=== PATIENT | male | born 1955 | race Hispanic/Latino ===

== ENCOUNTER 2017-10-03 13:00 | Inpatient (IN) | payer OTHER ==
[~2017-10-03] VITALS: Ht 165.1 cm; Wt 70.8 kg
[2017-10-03] MEDS ORDERED: PIPER-TAZ 3.375 GM 50 ML IV ONE (15:15)
[2017-10-03] MEDS ORDERED: VANCOMYCIN 1GM/NS 250 ML 250 ML IV ONE (15:15)
[2017-10-03 15:32] LABS: BASOPHILS # (AUTO) 0.1 (0.0-0.1); BASOPHILS % 0.6 % (0.0-1.0); EOSINOPHILS # (AUTO) 0.3 (0.0-0.4); EOSINOPHILS % 3.1 % (0.0-6.0); HEMATOCRIT 45.8 % (38.2-49.6); HEMOGLOBIN 15.7 g/dL (14.0-18.0); LYMPHOCYTES # (AUTO) 1.2 (1.0-3.2); MEAN CORPUSCULAR HEMOGLOBIN 29.1 pg (28-32); MEAN CORPUSCULAR HGB CONC 34.3 g/dL (31-35); MEAN CORPUSCULAR VOLUME 84.8 fL (81-99); MONOCYTES # (AUTO) 0.6 (0.2-0.8); MONOCYTES % 7.2 % (4.4-11.3); NEUTROPHILS # (AUTO) 5.9 (2.1-6.9); NEUTROPHILS % 73.6 % (38.7-80.0); PLATELET COUNT 191 x10e3/uL (140-360); RED CELL DISTRIBUTION WIDTH 13.4 % (11.7-14.4)
[2017-10-03 15:44] LABS: INR 0.97; PROTHROMBIN TIME 12.1 seconds (11.9-14.5)
[2017-10-03 15:45] LABS: PARTIAL THROMBOPLASTIN TIME 26.6 seconds (23.8-35.5)
[2017-10-03 15:48] LABS: ANION GAP 13.1 mmol/L (8-16); BLOOD UREA NITROGEN 16 mg/dL (7-26); BUN/CREATININE RATIO 17 (6-25); CALCIUM 9.7 mg/dL (8.4-10.2); CARBON DIOXIDE 24 mmol/L (22-29); CHLORIDE 105 mmol/L (98-107); CREATININE, SERUM 0.95 mg/dL (0.72-1.25); EST GLOMERULAR FILTRATION RATE > 60 ML/MIN (60-); GLUCOSE 142 mg/dL (74-118); POTASSIUM 4.1 mmol/L (3.5-5.1); SODIUM 138 mmol/L (136-145)
--- NOTE | 2017-10-03 15:55 | Diagnostic Imaging Report ---
PROCEDURE:X-RAY RIGHT FOOT, COMPLETE COMPARISON:None. INDICATIONS:NON HEALING WOUND ON LATERAL RIGHT FOOT FINDINGS: There are no fractures, dislocations, lytic or blastic lesions. No definite evidence of periosteal reaction or erosion. Mild deformity of the distal phalanx of the fifth toe, likely chronic. Soft tissue swelling of the lateral forefoot. Partially imaged old fracture deformity of distal fibula. CONCLUSION: No definite evidence of osteomyelitis. If there is high clinical concern, consider obtaining MRI for better evaluation. Dictated by: Roderick Hatfield M.D. on 10/03/2017 at 15:59 Electronically approved by: Roderick Hatfield M.D. on 10/03/2017 at 15:59
[2017-10-03] MEDS ORDERED: LOSARTAN POTASS25 MG PEG (16:07)
[2017-10-03] MEDS ORDERED: MONTELUKAST SOD10 MG PO (16:07)
[2017-10-03] MEDS ORDERED: GLIMEPIRIDE2 MG PEG (16:07)
[2017-10-03] MEDS ORDERED: LOVASTATIN40 MG PO (16:07)
[2017-10-03] MEDS ORDERED: GABAPENTIN400 MG PO (16:07)
[2017-10-03] MEDS ORDERED: CLOPIDOGREL75 MG PO (16:07)
[2017-10-03] MEDS ORDERED: SILVER GEL14.2 GM TOP (16:07)
[2017-10-03] MEDS ORDERED: ZYRTEC-D TABLE1 EACH PO (16:07)
[2017-10-03] MEDS ORDERED: OMEPRAZOLE40 MG PEG (16:07)
[2017-10-03] MEDS ORDERED: PIOGLITAZONE HC45 MG PO (16:07)
[2017-10-03] MEDS ORDERED: farxiga PEG (16:07)
[2017-10-03] MEDS ORDERED: CLINDAMYCIN HC150 MG PO (16:07)
[2017-10-03] MEDS ORDERED: CIPRO500 MG PO (16:07)
[2017-10-03] MEDS ORDERED: ATORVASTATIN CA20 MG PO (16:07)
[2017-10-03] MEDS ORDERED: SODIUM CHLORIDE FLUSH 10 ML SYR INJ PRN (16:45)
[2017-10-03 17:53] VITALS: BP 154/74
[2017-10-03 18:48] VITALS: BP 154/74
--- NOTE | 2017-10-03 19:34 | History and Physical ---
HISTORY OF PRESENT ILLNESS: Mr. Gibran Olivera is a pleasant 62-year-old diabetic. He presents to emergency room from referral from Dr. Schmitz's office for a necrotic lesion of the dorsum of his right foot. The patient reports that he does have numbness and tingling in both feet and both hands and did buy a new pair of shoes a couple months ago. He noticed this lesion 7 to 10 days [address] Schmitz who gave him oral antibiotics without any real improvement. PAST MEDICAL HISTORY: Significant only for diabetes and hypertension. Remote trauma in his right ankle about 30 years ago that was repaired without any foreign bodies. HOME MEDICATIONS: List is long including atorvastatin 20 mg daily, cetirizine, ciprofloxacin, clindamycin, clopidogrel 75 mg daily, gabapentin 400 mg b.i.d., glimepiride 2 mg tablet 4 mg b.i.d., losartan 25 mg tablets 50 mg daily, lovastatin 40 mg daily, montelukast, omeprazole 40 and Farxiga 10 mg. PERSONAL/SOCIAL HISTORY: Does not smoke. PHYSICAL EXAMINATION: GENERAL: Shows a pleasant, man who is alert and oriented. VITAL SIGNS: Blood pressure 130/70. HEENT: Unremarkable. NECK: No jugular venous distention. CARDIOVASCULAR: Heart sounds S1 S2 are equal. No murmurs. LUNGS: Clear. ABDOMEN: Protuberant. EXTREMITIES: No cyanosis, clubbing or edema. Distal pulses seem reduced and there is a circular necrotic lesion on the dorsum of the lateral right foot about 12 to 15 mm in diameter. CURRENT LABORATORY STUDIES: Show glucose 142. White count 8.0. X-ray of the foot does not suggest osteomyelitis. ASSESSMENT: 1. Necrotic lesion of the right foot, etiology not clear. 2. Long-standing diabetes. 3. Hyperlipidemia. 4. Possible peripheral vascular disease. PLAN: Patient has been switched to IV broad-spectrum antibiotics. Will continue his diabetic medications and ask for consultation from Dr. Salazar and Dr. Menendez. Check EKG and chest x-ray and further management based on clinical course. Job#: [id number] cc:GIBRAN SALAZAR DPM cc:DAIN MENENDEZ MD
[2017-10-03 20:00] VITALS: BP 160/78
[2017-10-03] MEDS ORDERED: SIMVASTATIN 40 MG TAB PO SCH (21:00)
[2017-10-03] MEDS ORDERED: SIMVASTATIN 20 MG TAB PO SCH (21:00)
[2017-10-03] MEDS: MONTELUKAST SODIUM 10 MG TAB PO SCH (21:04)
[2017-10-03] MEDS ORDERED: PIPER-TAZ 3.375 GM 50 ML IV SCH (21:40)
[2017-10-03] MEDS: PIPER-TAZ 3.375 GM 50 ML IV SCH (22:00)
--- NOTE | 2017-10-03 23:25 | Consultation ---
DATE OF CONSULTATION: October 03, 2017 PODIATRY CONSULTATION REASON FOR CONSULTATION: Chronic necrotic lesion, right foot. HISTORY OF PRESENT ILLNESS: Mr. Olivera is a pleasant 62-year-old male, admitted secondary to a lesion associated to his right foot. He has been for quite some time. Seen his primary care physician, Dr. Schmitz, for the worsening of the same. He was sent for evaluation and recommendations. He was admitted through ED for evaluation and recommendations. PAST MEDICAL HISTORY: Hypertension, diabetes, hyperlipidemia, GERD, PAD, peripheral neuropathy. SURGICAL HISTORY: Right ankle fracture, otherwise noncontributory. ALLERGIES: NO KNOWN DRUG ALLERGIES. MEDICATIONS: Please see MAR for current medication list. ELEVEN-POINT REVIEW OF SYSTEMS: Denies any nausea, vomiting, fever, chills, shortness of breath, chest pain, hematuria, constipation, diarrhea. PHYSICAL EXAM GENERAL: AO x3. NAD. HEENT: Normocephalic, atraumatic, anicteric. ABDOMEN: Soft, nontender, nondistended. RESPIRATORY: Symmetrical expansion. No distress. PSYCHIATRIC: Normal affect. EXTREMITIES: Patch of significant erythema nonblanchable erythema, which is significantly cool to touch with the center of ischemic area along the dorsal lateral aspect of the right foot. No soft tissue crepitus. No active drainage. Capillary refill time is delayed. DIAGNOSTIC DATA: X-rays negative. LABS: Within normal limits, particularly WBC. BUN and creatinine 16 and 0.95 respectively. Glucose is 142. ASSESSMENT: Ischemic lesion, right foot. PLAN: Recommend arterial studies and vascular workup and further recommendations to follow subsequent to the same, but it looks and sounds like he will need endovascular intervention. Ultimately, may benefit from more debridement. I would like to thank Dr. Felipe for allowing me to participate in the care of this patient. Job#: [id number] CQ
[2017-10-04] VITALS (7 sets, daily range): BP systolic 134–164; BP diastolic 63–84
[2017-10-04] MEDS ORDERED: SODIUM CHLORIDE 0.9% 250ML 250 ML ONE (00:22)
[2017-10-04] MEDS: VANCOMYCIN HCL 1.25 GM in SODIUM CHLORIDE 0.9% 250ML 250 ML IV SCH ×2 (03:11→15:30)
[2017-10-04] MEDS: PIPER-TAZ 3.375 GM 50 ML IV SCH ×4 (04:56→22:00)
--- NOTE | 2017-10-04 06:28 | Diagnostic Imaging Report ---
EXAMINATION: CHEST SINGLE (NOT PORTABLE) INDICATION: Diabetes, hypertension COMPARISON: None FINDINGS: TUBES and LINES: None. LUNGS: Lungs are well inflated. Lungs are clear. There is no evidence of pneumonia or pulmonary edema. PLEURA: No pleural effusion or pneumothorax. HEART AND MEDIASTINUM: The cardiomediastinal silhouette is unremarkable. BONES AND SOFT TISSUES: No acute osseous lesion. Soft tissues are unremarkable. UPPER ABDOMEN: No free air under the diaphragm. IMPRESSION: No acute thoracic abnormality. Signed by: Dr. Cullen Blanco M.D. on 10/04/2017 6:25 AM
[2017-10-04] MEDS ORDERED: GLIMEPIRIDE 2 MG TAB PEG SCH (07:30)
[2017-10-04 08:08] LABS: BASOPHILS # (AUTO) 0.1 (0.0-0.1); BASOPHILS % 0.7 % (0.0-1.0); EOSINOPHILS # (AUTO) 0.3 (0.0-0.4); EOSINOPHILS % 3.6 % (0.0-6.0); HEMATOCRIT 41.8 % (38.2-49.6); HEMOGLOBIN 14.4 g/dL (14.0-18.0); LYMPHOCYTES # (AUTO) 1.5 (1.0-3.2); LYMPHOCYTES % 20.6 % (18.0-39.1); MEAN CORPUSCULAR HGB CONC 34.4 g/dL (31-35); MEAN CORPUSCULAR VOLUME 84.3 fL (81-99); MONOCYTES # (AUTO) 0.5 (0.2-0.8); MONOCYTES % 7.3 % (4.4-11.3); NEUTROPHILS # (AUTO) 4.9 (2.1-6.9); NEUTROPHILS % 67.5 % (38.7-80.0); PLATELET COUNT 191 x10e3/uL (140-360); RED BLOOD COUNT 4.96 x10e6/uL (4.3-5.7); RED CELL DISTRIBUTION WIDTH 13.2 % (11.7-14.4)
[2017-10-04 08:23] LABS: ANION GAP 12.9 mmol/L (8-16); BLOOD UREA NITROGEN 18 mg/dL (7-26); BUN/CREATININE RATIO 21 (6-25); CALCIUM 9.2 mg/dL (8.4-10.2); CARBON DIOXIDE 23 mmol/L (22-29); CHLORIDE 109 mmol/L (98-107); CREATININE, SERUM 0.85 mg/dL (0.72-1.25); EST GLOMERULAR FILTRATION RATE > 60 ML/MIN (60-); GLUCOSE 158 mg/dL (74-118); POTASSIUM 3.9 mmol/L (3.5-5.1); SODIUM 141 mmol/L (136-145)
[2017-10-04] MEDS ORDERED: SIMVASTATIN 20 MG TAB PO SCH (09:00)
[2017-10-04] MEDS ORDERED: PANTOPRAZOLE SOD 40 MG TABEC PO SCH (09:00)
[2017-10-04] MEDS ORDERED: NON-FORMULARY MEDICATION (Cetirizine Hcl/Pseudoephedrine (Zyrtec-D Tablet) 1 TAB) PO SCH (09:00)
[2017-10-04] MEDS: FARXIGA 10 MG PEG SCH (09:00)
[2017-10-04] MEDS ORDERED: ATORVASTATIN 20 MG TAB PO SCH (09:00)
[2017-10-04] MEDS: PIOGLITAZONE HCL 45 MG TAB PO SCH (09:46)
[2017-10-04] MEDS: LORATADINE/PSEUDOEPHEDRINE 24 HR SR TAB PO SCH (09:46)
[2017-10-04] MEDS: LOSARTAN POTASSIUM 25 MG TAB PEG SCH (09:46)
[2017-10-04] MEDS: GABAPENTIN 400 MG CAP PO SCH ×2 (09:47→17:38)
[2017-10-04] MEDS: CLOPIDOGREL BISULFATE 75 MG TAB PO SCH (09:47)
[2017-10-04 15:36] LABS: FREE T4 (FREE THYROXINE) 0.94 ng/dL (0.9-1.8); THYROID STIMULATING HORMONE 1.761 uIU/mL (0.350-4.940)
[2017-10-04] MEDS: INSULIN LISPRO 100 UNIT/1 ML 3ML VIAL SQ SCH ×2 (16:45→21:00)
--- NOTE | 2017-10-04 17:39 | Consultation ---
DATE OF CONSULTATION: OCTOBER 04, 2017 ENDOCRINE CONSULTATION This is a patient of Dr. Felipe and Dr. Schmitz. Thank you very much for referring this patient. This is a 62-year-old gentleman who is referred to me for evaluation of diabetes mellitus. The patient reportedly is a known diabetic for almost 15 years and takes a combination of sulfonylurea that is glimepiride and pioglitazone. His blood sugars have been fluctuating at home. He came to the hospital with history of right foot ulcer. Patient is being evaluated for the same. Patient also has history of hypertension. He has a very strong family history of diabetes mellitus. PHYSICAL EXAMINATION GENERAL: Today, the patient is alert, awake, a little bit apprehensive. He is moderately overweight. VITALS: His heart rate is around 78. Blood pressure 140/80 mmHg. HEENT: Examination is essentially unremarkable. NECK: Thyroid is palpable. Clinically, he is near euthyroid CHEST: Bilateral vesicular breathing. Normal 1st and 2nd heart sounds. There is no 3rd or 4th heart sound. Ejection systolic murmur, grade 2/6. EXTREMITIES: Patient has evidence of diabetic sensory neuropathy in both lower extremities. He also has fungal toenails. He has an ulcer on the lateral aspect of the foot. It is relatively a superficial ulcer. LABS: His blood sugars have been in the 150 to 200 range. CLINICAL IMPRESSION 1. Foot ulcer, rule out ischemic ulcer. 2. Diabetes mellitus, type 2, uncontrolled with complications. 3. Hypertension. The plan at this time is to do a hemoglobin A1c and thyroid function test. Monitor his blood sugars closely. Use insulin as needed. The treatment options were discussed with the patient including SGLT2 inhibitor. Thanks for referring this patient. I will be following this patient with you. Job#: [id number] ANGEL
[2017-10-04] MEDS: MONTELUKAST SODIUM 10 MG TAB PO SCH (21:10)
[2017-10-04] MEDS: SIMVASTATIN 20 MG TAB PO SCH (21:10)
[2017-10-05] VITALS: BP 134/73
[2017-10-05 02:57] LABS: CHOL/HDL RATIO 5.1 (3.9-4.7)
[2017-10-05 04:00] VITALS: BP 137/67
[2017-10-05] MEDS: PIPER-TAZ 3.375 GM 50 ML IV SCH ×4 (04:52→22:10)
[2017-10-05] MEDS: INSULIN LISPRO 100 UNIT/1 ML 3ML VIAL SQ SCH ×4 (07:30→21:00)
[2017-10-05 08:28] VITALS: BP 155/81
[2017-10-05] MEDS: CLOPIDOGREL BISULFATE 75 MG TAB PO SCH (08:47)
[2017-10-05] MEDS: GABAPENTIN 400 MG CAP PO SCH ×2 (08:47→17:41)
[2017-10-05] MEDS: FARXIGA 10 MG PEG SCH (08:47)
[2017-10-05] MEDS: PIOGLITAZONE HCL 45 MG TAB PO SCH (08:47)
[2017-10-05] MEDS: LORATADINE/PSEUDOEPHEDRINE 24 HR SR TAB PO SCH (08:47)
[2017-10-05] MEDS: PANTOPRAZOLE SOD 40 MG TABEC PO SCH (08:47)
[2017-10-05] MEDS: LOSARTAN POTASSIUM 25 MG TAB PEG SCH (08:47)
[2017-10-05] MEDS: GLIMEPIRIDE 2 MG TAB PO SCH ×2 (08:47→17:41)
[2017-10-05] MEDS: VANCOMYCIN HCL 1.25 GM in SODIUM CHLORIDE 0.9% 250ML 250 ML IV SCH (10:17)
[2017-10-05 12:00] VITALS: BP 173/87
[2017-10-05 16:45] VITALS: BP 183/91
[2017-10-05 20:00] VITALS: BP 148/76
[2017-10-05] MEDS: SIMVASTATIN 20 MG TAB PO SCH (22:00)
[2017-10-05] MEDS: MONTELUKAST SODIUM 10 MG TAB PO SCH (22:00)
[2017-10-06] VITALS (7 sets, daily range): BP systolic 128–179; BP diastolic 71–84
[2017-10-06] MEDS: PIPER-TAZ 3.375 GM 50 ML IV SCH ×4 (04:23→21:18)
[2017-10-06 06:05] LABS: BASOPHILS # (AUTO) 0.1 (0.0-0.1); BASOPHILS % 0.6 % (0.0-1.0); EOSINOPHILS # (AUTO) 0.4 (0.0-0.4); EOSINOPHILS % 4.2 % (0.0-6.0); HEMATOCRIT 41.5 % (38.2-49.6); HEMOGLOBIN 14.4 g/dL (14.0-18.0); LYMPHOCYTES # (AUTO) 1.8 (1.0-3.2); LYMPHOCYTES % 21.3 % (18.0-39.1); MEAN CORPUSCULAR HEMOGLOBIN 29.1 pg (28-32); MEAN CORPUSCULAR HGB CONC 34.7 g/dL (31-35); MEAN CORPUSCULAR VOLUME 83.8 fL (81-99); MONOCYTES # (AUTO) 0.6 (0.2-0.8); MONOCYTES % 7.2 % (4.4-11.3); NEUTROPHILS # (AUTO) 5.5 (2.1-6.9); NEUTROPHILS % 66.5 % (38.7-80.0); PLATELET COUNT 208 x10e3/uL (140-360); RED BLOOD COUNT 4.95 x10e6/uL (4.3-5.7); RED CELL DISTRIBUTION WIDTH 13.1 % (11.7-14.4)
[2017-10-06 06:30] LABS: ANION GAP 10.6 mmol/L (8-16); BLOOD UREA NITROGEN 16 mg/dL (7-26); BUN/CREATININE RATIO 20 (6-25); CALCIUM 8.8 mg/dL (8.4-10.2); CARBON DIOXIDE 23 mmol/L (22-29); CHLORIDE 110 mmol/L (98-107); CREATININE, SERUM 0.79 mg/dL (0.72-1.25); EST GLOMERULAR FILTRATION RATE > 60 ML/MIN (60-); GLUCOSE 99 mg/dL (74-118); POTASSIUM 3.6 mmol/L (3.5-5.1); SODIUM 140 mmol/L (136-145)
[2017-10-06] MEDS: INSULIN LISPRO 100 UNIT/1 ML 3ML VIAL SQ SCH ×4 (07:30→21:00)
[2017-10-06] MEDS: FARXIGA 10 MG PEG SCH (09:00)
[2017-10-06] MEDS: LORATADINE/PSEUDOEPHEDRINE 24 HR SR TAB PO SCH (09:29)
[2017-10-06] MEDS: PIOGLITAZONE HCL 45 MG TAB PO SCH (09:29)
[2017-10-06] MEDS: PANTOPRAZOLE SOD 40 MG TABEC PO SCH (09:29)
[2017-10-06] MEDS: VANCOMYCIN HCL 1.25 GM in SODIUM CHLORIDE 0.9% 250ML 250 ML IV SCH (09:29)
[2017-10-06] MEDS: LOSARTAN POTASSIUM 25 MG TAB PEG SCH (09:29)
[2017-10-06] MEDS: CLOPIDOGREL BISULFATE 75 MG TAB PO SCH (09:29)
[2017-10-06] MEDS: GABAPENTIN 400 MG CAP PO SCH ×2 (09:29→17:04)
[2017-10-06] MEDS: GLIMEPIRIDE 2 MG TAB PO SCH ×2 (09:29→17:04)
[2017-10-06] MEDS: SIMVASTATIN 20 MG TAB PO SCH (21:00)
[2017-10-06] MEDS: MONTELUKAST SODIUM 10 MG TAB PO SCH (21:00)
[2017-10-07] VITALS (7 sets, daily range): BP systolic 133–166; BP diastolic 63–83
[2017-10-07] MEDS: PIPER-TAZ 3.375 GM 50 ML IV SCH ×4 (04:00→22:13)
[2017-10-07] MEDS: INSULIN LISPRO 100 UNIT/1 ML 3ML VIAL SQ SCH ×4 (07:30→21:00)
[2017-10-07] MEDS: GLIMEPIRIDE 2 MG TAB PO SCH ×2 (08:34→16:25)
[2017-10-07] MEDS: LORATADINE/PSEUDOEPHEDRINE 24 HR SR TAB PO SCH (08:34)
[2017-10-07] MEDS: PIOGLITAZONE HCL 45 MG TAB PO SCH (08:34)
[2017-10-07] MEDS: GABAPENTIN 400 MG CAP PO SCH ×2 (08:34→16:52)
[2017-10-07] MEDS: LOSARTAN POTASSIUM 25 MG TAB PEG SCH (08:34)
[2017-10-07] MEDS: PANTOPRAZOLE SOD 40 MG TABEC PO SCH (08:34)
[2017-10-07] MEDS: CLOPIDOGREL BISULFATE 75 MG TAB PO SCH (08:34)
[2017-10-07] MEDS: FARXIGA 10 MG PEG SCH (09:00)
[2017-10-07] MEDS: VANCOMYCIN HCL 1.25 GM in SODIUM CHLORIDE 0.9% 250ML 250 ML IV SCH (10:30)
[2017-10-07] MEDS: SIMVASTATIN 20 MG TAB PO SCH (22:13)
[2017-10-07] MEDS: MONTELUKAST SODIUM 10 MG TAB PO SCH (22:13)
[2017-10-08] VITALS (8 sets, daily range): BP systolic 139–158; BP diastolic 77–83
[2017-10-08] MEDS: PIPER-TAZ 3.375 GM 50 ML IV SCH ×4 (03:46→20:49)
[2017-10-08] MEDS: INSULIN LISPRO 100 UNIT/1 ML 3ML VIAL SQ SCH ×4 (07:30→21:00)
[2017-10-08] MEDS: FARXIGA 10 MG PEG SCH (09:00)
[2017-10-08] MEDS: GLIMEPIRIDE 2 MG TAB PO SCH ×2 (09:14→16:20)
[2017-10-08] MEDS: GABAPENTIN 400 MG CAP PO SCH ×2 (09:14→16:20)
[2017-10-08] MEDS: CLOPIDOGREL BISULFATE 75 MG TAB PO SCH (09:14)
[2017-10-08] MEDS: PIOGLITAZONE HCL 45 MG TAB PO SCH (09:14)
[2017-10-08] MEDS: LORATADINE/PSEUDOEPHEDRINE 24 HR SR TAB PO SCH (09:14)
[2017-10-08] MEDS: LOSARTAN POTASSIUM 25 MG TAB PEG SCH (09:14)
[2017-10-08] MEDS: PANTOPRAZOLE SOD 40 MG TABEC PO SCH (09:14)
[2017-10-08] MEDS: VANCOMYCIN HCL 1.25 GM in SODIUM CHLORIDE 0.9% 250ML 250 ML IV SCH (10:57)
[2017-10-08] MEDS: MONTELUKAST SODIUM 10 MG TAB PO SCH (20:49)
[2017-10-08] MEDS: SIMVASTATIN 20 MG TAB PO SCH (20:49)
[2017-10-09] VITALS (7 sets, daily range): BP systolic 136–146; BP diastolic 70–80
[2017-10-09] MEDS: PIPER-TAZ 3.375 GM 50 ML IV SCH ×2 (05:10→10:32)
[2017-10-09 05:47] LABS: BASOPHILS # (AUTO) 0.1 (0.0-0.1); BASOPHILS % 0.7 % (0.0-1.0); EOSINOPHILS # (AUTO) 0.4 (0.0-0.4); EOSINOPHILS % 4.4 % (0.0-6.0); HEMATOCRIT 42.5 % (38.2-49.6); HEMOGLOBIN 14.3 g/dL (14.0-18.0); LYMPHOCYTES # (AUTO) 1.7 (1.0-3.2); LYMPHOCYTES % 20.5 % (18.0-39.1); MEAN CORPUSCULAR HEMOGLOBIN 28.8 pg (28-32); MEAN CORPUSCULAR HGB CONC 33.6 g/dL (31-35); MEAN CORPUSCULAR VOLUME 85.7 fL (81-99); MONOCYTES # (AUTO) 0.7 (0.2-0.8); MONOCYTES % 8.3 % (4.4-11.3); NEUTROPHILS # (AUTO) 5.3 (2.1-6.9); NEUTROPHILS % 65.7 % (38.7-80.0); PLATELET COUNT 213 x10e3/uL (140-360); RED BLOOD COUNT 4.96 x10e6/uL (4.3-5.7); RED CELL DISTRIBUTION WIDTH 13.1 % (11.7-14.4)
[2017-10-09 06:16] LABS: ANION GAP 10.8 mmol/L (8-16); BLOOD UREA NITROGEN 19 mg/dL (7-26); BUN/CREATININE RATIO 24 (6-25); CARBON DIOXIDE 25 mmol/L (22-29); CHLORIDE 107 mmol/L (98-107); CREATININE, SERUM 0.78 mg/dL (0.72-1.25); EST GLOMERULAR FILTRATION RATE > 60 ML/MIN (60-); GLUCOSE 112 mg/dL (74-118); POTASSIUM 3.8 mmol/L (3.5-5.1); SODIUM 139 mmol/L (136-145)
[2017-10-09] MEDS: INSULIN LISPRO 100 UNIT/1 ML 3ML VIAL SQ SCH ×4 (07:30→20:14)
[2017-10-09] MEDS: CLOPIDOGREL BISULFATE 75 MG TAB PO SCH (08:56)
[2017-10-09] MEDS: GLIMEPIRIDE 2 MG TAB PO SCH ×2 (08:56→16:45)
[2017-10-09] MEDS: GABAPENTIN 400 MG CAP PO SCH ×2 (08:56→16:45)
[2017-10-09] MEDS: LOSARTAN POTASSIUM 25 MG TAB PEG SCH (08:56)
[2017-10-09] MEDS: PIOGLITAZONE HCL 45 MG TAB PO SCH (08:56)
[2017-10-09] MEDS: PANTOPRAZOLE SOD 40 MG TABEC PO SCH (08:56)
[2017-10-09] MEDS: LORATADINE/PSEUDOEPHEDRINE 24 HR SR TAB PO SCH (08:56)
[2017-10-09] MEDS: FARXIGA 10 MG PEG SCH (09:00)
[2017-10-09] MEDS: VANCOMYCIN HCL 1.25 GM in SODIUM CHLORIDE 0.9% 250ML 250 ML IV SCH (11:55)
[2017-10-09] MEDS ORDERED: ACETAMINOPHEN/CODEINE 300MG - 30MG TAB PO PRN (13:45)
[2017-10-09] MEDS ORDERED: DIPHENHYDRAMINE HCL 25 MG CAP PO PRN (13:45)
--- NOTE | 2017-10-09 14:39 | Operative Report ---
DATE OF PROCEDURE: October 09, 2017 PREOPERATIVE DIAGNOSIS: Diabetic ulceration albeit necrotic diabetic ulceration right foot. POSTOPERATIVE DIAGNOSIS: Diabetic ulceration albeit necrotic diabetic ulceration right foot. OPERATION PERFORMED: Sharp excisional debridement through subcutaneous tissue, muscle and deep fascia of diabetic ulceration dorsolateral aspect right foot. INVESTIGATION MANAGER: None. ANESTHESIA: None. HEMOSTASIS: Local. INDICATION FOR PROCEDURE: Mr. Olivera is a pleasant 62-year-old male who was admitted for what appeared to be initially an ischemic type of lesion to the right foot, particularly secondary to significant amount of mottling and cool cyanotic tissue to the periphery of the same with the center being significantly necrotic, in fact 100% necrotic. Over time with antibiotics, periphery has improved. The skin temperature surrounding the lesion is warm although the lesion itself is 100% escharotic and at this point needs debridement. He was educated on risks and complications and is willing and able to proceed. DETAILS OF PROCEDURE: This was done at bedside utilizing a number 10 blade, and the ulceration which is on the dorsolateral aspect of the right foot was sharply excised and sharply debrided utilizing once again a number 10 blade through subcutaneous tissue, deep fascia and some muscle. Some bleeding was established, hemostasis achieved, and dressings were applied. Patient tolerated the procedure well. At this point, getting ready for discharge planning. Local wound care should consist of Santyl wet-to-dry and discontinue IV antibiotics and start orals, at this point recommend doxycycline. Job#: [id number] VINNIE
[2017-10-09] MEDS: COLLAGENASE 5 GM TUBE TOP SCH (16:30)
[2017-10-09] MEDS: MONTELUKAST SODIUM 10 MG TAB PO SCH (20:18)
[2017-10-09] MEDS: DOXYCYCLINE HYCLATE TABLET 100 MG TAB PO SCH (20:19)
[2017-10-09] MEDS: SIMVASTATIN 20 MG TAB PO SCH (20:19)
[2017-10-10] VITALS: BP 141/74
[2017-10-10 04:00] VITALS: BP 134/77
[2017-10-10] MEDS: INSULIN LISPRO 100 UNIT/1 ML 3ML VIAL SQ SCH ×2 (07:30→11:30)
[2017-10-10] MEDS: GLIMEPIRIDE 2 MG TAB PO SCH (07:46)
[2017-10-10] MEDS: PANTOPRAZOLE SOD 40 MG TABEC PO SCH (07:46)
[2017-10-10 08:00] VITALS: BP 139/75
[2017-10-10] MEDS: PIOGLITAZONE HCL 45 MG TAB PO SCH (08:44)
[2017-10-10] MEDS: LOSARTAN POTASSIUM 25 MG TAB PEG SCH (08:44)
[2017-10-10] MEDS: CLOPIDOGREL BISULFATE 75 MG TAB PO SCH (08:44)
[2017-10-10] MEDS: GABAPENTIN 400 MG CAP PO SCH (08:44)
[2017-10-10] MEDS: COLLAGENASE 5 GM TUBE TOP SCH (08:44)
[2017-10-10] MEDS: DOXYCYCLINE HYCLATE TABLET 100 MG TAB PO SCH (08:44)
[2017-10-10] MEDS: LORATADINE/PSEUDOEPHEDRINE 24 HR SR TAB PO SCH (08:44)
[2017-10-10] MEDS ORDERED: COLLAGENASE 5 GM TUBE TOP SCH (09:00)
[2017-10-10] MEDS: FARXIGA 10 MG PEG SCH (09:00)
[2017-10-10 10:08] VITALS: BP 139/75
[2017-10-10 12:00] VITALS: BP 159/83
[2017-10-10] MEDS ORDERED: TYLENOL WITH C1 EACH PO (14:34)
[2017-10-10] MEDS ORDERED: ACTOS45 MG PO (14:35)
[2017-10-10] MEDS ORDERED: DOXYCYCLINE HY100 M4 PO (14:35)
[2017-10-10] MEDS ORDERED: AMARYL4 MG PO (14:36)
[2017-10-10 16:00] VITALS: BP 150/82
== END 2017-10-10 16:38 | disposition home or self-care (01) | DRG 982 ==
LOC: ER 13:00 → ERHOLD 16:46 → IMCU 17:54 → MED/SURG3 10-06 12:27 → OBSVTOIN 10-06 12:50
PROVIDERS: ADMIT Internal Medicine Cardiovascular Disease; ATTEND Internal Medicine Cardiovascular Disease
PROC: 0KBV0ZZ Excision of Right Foot Muscle, Open Approach (ICD-10-PCS; principal; 2017-10-09)
DX: E11.621 Type 2 diabetes mellitus with foot ulcer (principal); L03.115 Cellulitis of right lower limb; I96 Gangrene, not elsewhere classified; L97.519 Non-pressure chronic ulcer of other part of right foot with unspecified severity; E11.65 Type 2 diabetes mellitus with hyperglycemia; I10 Essential (primary) hypertension; E78.5 Hyperlipidemia, unspecified; K21.9 Gastro-esophageal reflux disease without esophagitis; E11.42 Type 2 diabetes mellitus with diabetic polyneuropathy; Z79.84 Long term (current) use of oral hypoglycemic drugs; Z79.02 Long term (current) use of antithrombotics/antiplatelets
CPT/HCPCS: 36415; 71045; 80048; 80061; 80202; 82948; 83036; 84439; 84443; 85025; 85610; 85730; 93005; 93925; 99284; G0378; J2543; J3370; J7050

== ENCOUNTER 2019-02-11 15:44 | Inpatient (IN) | payer OTHER ==
[~2019-02-11] VITALS: Ht 165.1 cm; Wt 89.8 kg
[~2019-02-11 15:44] MED LIST: ACTOS45 MG PO; AMARYL4 MG PO; ATORVASTATIN CA20 MG PO; CIPRO500 MG PO; CLINDAMYCIN HC150 MG PO; CLOPIDOGREL75 MG PO; DOXYCYCLINE HY100 M4 PO; GABAPENTIN400 MG PO; GLIMEPIRIDE2 MG PO; LOSARTAN POTASS25 MG PO; LOVASTATIN40 MG PO; MONTELUKAST SOD10 MG PO; OMEPRAZOLE40 MG PEG; PIOGLITAZONE HC45 MG PO; SILVER GEL14.2 GM TOP; TYLENOL WITH C1 EACH PO; ZYRTEC-D TABLE1 EACH PO; farxiga PEG
--- NOTE | 2019-02-11 16:01 | NUR ---
PT PLACED ON O2 UPON TRIAGE.
[2019-02-11 16:36] LABS: BASOPHILS % 0.6 % (0.0-1.0); EOSINOPHILS # (AUTO) 0.1 (0.0-0.4); EOSINOPHILS % 1.9 % (0.0-6.0); HEMATOCRIT 36.6 % (38.2-49.6); HEMOGLOBIN 12.1 g/dL (14.0-18.0); LYMPHOCYTES # (AUTO) 1.2 (1.0-3.2); LYMPHOCYTES % 24.7 % (18.0-39.1); MEAN CORPUSCULAR HEMOGLOBIN 29.6 pg (28-32); MEAN CORPUSCULAR HGB CONC 33.1 g/dL (31-35); MEAN CORPUSCULAR VOLUME 89.5 fL (81-99); MONOCYTES # (AUTO) 0.6 (0.2-0.8); MONOCYTES % 12.1 % (4.4-11.3); NEUTROPHILS # (AUTO) 2.8 (2.1-6.9); NEUTROPHILS % 60.5 % (38.7-80.0); PLATELET COUNT 203 x10e3/uL (140-360); RED BLOOD COUNT 4.09 x10e6/uL (4.3-5.7); RED CELL DISTRIBUTION WIDTH 14.5 % (11.7-14.4)
[2019-02-11 16:47] LABS: INR 0.94; PROTHROMBIN TIME 13.1 seconds (11.9-14.5)
[2019-02-11 16:48] LABS: PARTIAL THROMBOPLASTIN TIME 31.3 seconds (23.8-35.5)
[2019-02-11 16:53] LABS: ALANINE AMINOTRANSFERASE 44 IU/L (0-55); ALBUMIN 3.6 g/dL (3.5-5.0); ALBUMIN/GLOBULIN RATIO 1.3 (0.8-2.0); ALKALINE PHOSPHATASE 71 IU/L (40-150); ANION GAP 10.6 mmol/L (8-16); BLOOD UREA NITROGEN 12 mg/dL (7-26); BUN/CREATININE RATIO 13 (6-25); CALCIUM 9.1 mg/dL (8.4-10.2); CARBON DIOXIDE 26 mmol/L (22-29); CHLORIDE 105 mmol/L (98-107); CREATINE KINASE 137 IU/L (30-200); CREATININE, SERUM 0.95 mg/dL (0.72-1.25); EST GLOMERULAR FILTRATION RATE > 60 ML/MIN (60-); GLUCOSE 160 mg/dL (74-118); POTASSIUM 3.6 mmol/L (3.5-5.1); SODIUM 138 mmol/L (136-145)
--- NOTE | 2019-02-11 17:52 | Diagnostic Imaging Report ---
EXAMINATION: CHEST SINGLE (PORTABLE) COMPARISON: Chest x-ray 10/04/2017 INDICATION: Midsternal chest pain ^CHEST PAIN ^[id number] ^1735 ^Y DISCUSSION: Frontal view of the chest obtained at 1740 hours. HEART AND MEDIASTINUM: The heart is top normal in size to mildly enlarged. LINES: None. LUNGS: Pulmonary vascular markings are mildly prominent. There are patchy bilateral mid and lower lobe airspace opacities and mild interstitial edema. PLEURA: No large effusions. No pneumothorax. BONES AND SOFT TISSUES: No focal osseous lesion. The soft tissues are normal. IMPRESSION: Cardiomegaly and mild CHF. Pulmonary vascular congestion and bilateral mid and lower lobe airspace opacities which may represent edema or pneumonia. Signed by: Dr. Joselyn Jakcson MD on 02/11/2019 5:48 PM
[2019-02-11] MEDS ORDERED: FUROSEMIDE INJ 10 MG/ML 4 ML VIAL IV ONE (18:00)
[2019-02-11 19:13] LABS: BILIRUBIN,URINE NEGATIVE (NEGATIVE); CLARITY,URINE SL CLOUDY (CLEAR); COLOR,URINE YELLOW (YELLOW); KETONES,URINE NEGATIVE (NEGATIVE); LEUKOCYTE ESTERASE ,URINE NEGATIVE (NEGATIVE); NITRITE,URINE NEGATIVE (NEGATIVE); PROTEIN,URINE DIPSTICK NEGATIVE (NEGATIVE); URINE UROBILINOGEN 0.2 mg/dL (0.2 - 1)
[2019-02-11 19:26] LABS: MUCUS,URINE FEW (RARE)
--- NOTE | 2019-02-12 | NUR ---
pt transferred to hospital bed for comfort.
[2019-02-12 00:02] LABS: CREATINE KINASE MB 2.2 ng/mL (0-5.0)
[2019-02-12 04:56] LABS: CREATINE KINASE MB 1.7 ng/mL (0-5.0)
--- NOTE | 2019-02-12 06:20 | NUR ---
pt weight assessed using standing scale. weight 178.8lbs.
--- NOTE | 2019-02-12 10:05 | NUR ---
notified echo of order per
[2019-02-12] MEDS ORDERED: ACETAMINOPHEN 325 MG TAB PO PRN (10:15)
[2019-02-12] MEDS ORDERED: ZOLPIDEM TARTRATE 5 MG TAB PO PRN (10:15)
[2019-02-12] MEDS ORDERED: MAGNESIUM/ALUMINUM/SIMETHICONE 30 ML UDC PO PRN (10:15)
[2019-02-12] MEDS ORDERED: MAGNESIUM HYDROXIDE 30 ML UDC PO PRN (10:15)
[2019-02-12] MEDS ORDERED: DEXTROSE 50% SYRINGE 50 ML IV PRN (10:30)
--- NOTE | 2019-02-12 10:48 | NUR ---
madyson saw pt and pt/fm updated.
--- NOTE | 2019-02-12 11:41 | NUR ---
just completed echo. rad transportation here for pt to go to nuc. med.; consent placed on chart, (not signed)for nuc tech. pt sent on portable monitor per request of tech.
[2019-02-12] MEDS ORDERED: GABAPENTIN 300 MG CAP ONE (11:51)
--- NOTE | 2019-02-12 11:51 | NUR ---
meds pulled; pt already taken to radiology test stress test.
[2019-02-12] MEDS: PIOGLITAZONE HCL 45 MG TAB PO SCH (11:52)
[2019-02-12] MEDS: INSULIN REGULAR, HUMAN 100 UNIT/1 ML 3ML VIAL SQ SCH ×3 (11:52→21:00)
[2019-02-12] MEDS ORDERED: GABAPENTIN 100 MG CAP ONE (11:52)
[2019-02-12] MEDS: LOSARTAN POTASSIUM 25 MG TAB PO SCH ×2 (11:53→14:27)
[2019-02-12] MEDS: DOCUSATE SODIUM 100 MG CAP PO SCH ×2 (11:53→14:26)
[2019-02-12] MEDS: GABAPENTIN 400 MG CAP PO SCH ×2 (11:53→14:26)
[2019-02-12] MEDS: CLOPIDOGREL BISULFATE 75 MG TAB PO SCH ×2 (11:53→14:27)
[2019-02-12] MEDS: FUROSEMIDE 20 MG TAB PO SCH ×2 (11:54→14:27)
[2019-02-12] MEDS: PANTOPRAZOLE SOD 40 MG TABEC PO SCH ×2 (11:54→14:27)
[2019-02-12] MEDS ORDERED: REGADENOSON 0.4 MG/5 ML SYR IV ONE (12:02)
--- NOTE | 2019-02-12 12:05 | NUR ---
REPORT CALLED TO DAISY. KRUSE PT IN NUCLEAR MED. PT WILL COME BACK TO UNIT TO BE MEDICATED AND THEN TO FLOOR.
--- NOTE | 2019-02-12 14:05 | NUR ---
CALLED [facility] TO CHECK ON PT STATUS, FAY STATES PT STILL HAS 15 MINS LEFT ON TESTING.
--- NOTE | 2019-02-12 15:25 | NUR ---
RECEIVED PT FROM ER. VICTOR HUGO4. FAMILY AT BEDSIDE. EDUCATED PT ABOUT FALL PRECAUTIONS. CALL LIGHT WITH IN EASY REACH. INSTRUCTED PT TO USE CALL LIGHT FOR ALL THE NEEDS. BED IS LOW AND LOCKED. SIDE RAILS X 2. PT VERBALIZED UNDERSTANDING. PT DENIED FURTHER NEEDS.
[2019-02-12 15:46] VITALS: BP 147/92
[2019-02-12 16:27] VITALS: BP 147/92
[2019-02-12] MEDS: GLIMEPIRIDE 2 MG TAB PO SCH (17:26)
--- NOTE | 2019-02-12 17:53 | History and Physical ---
Mr. Olivera is a pleasant 63-year-old diabetic, who presents to the emergency room on the evening of the with a complaint of increasing shortness of breath. HISTORY OF PRESENT ILLNESS: The patient reports in the last couple of weeks that he has seen short of breath on exertion and recently noted some ankle edema as well. He denies any chest pain or palpitations. No previous knowledge of any heart problem. PAST MEDICAL HISTORY: Significant for diabetes and hypertension. He had trauma to his right ankle about 30 years ago and it was repaired without any foreign body left over. He was hospitalized at [facility] in September 2017 with ulceration of his right dorsum of the foot, which was debrided and healed well. HOME MEDICATIONS: His recent home medications have been atorvastatin 20 mg daily, clopidogrel 75 mg daily, gabapentin 400 mg b.i.d., glimepiride 4 mg twice a day, losartan 50 mg daily, montelukast, omeprazole, and Farxiga. PERSONAL/SOCIAL HISTORY: He reports he has never smoked. FAMILY HISTORY: Reports that his father from smoking. He has no other details. His mother seems to have diabetes and his brothers and sisters have diabetes. PHYSICAL EXAMINATION: GENERAL: At this time shows a pleasant man, who is bald. VITAL SIGNS: Blood pressure 140/80, pulse 70 and regular. HEAD, EYES, EARS, NOSE, AND THROAT: Unremarkable. NECK: No jugular venous distention. No bruits. THORAX: Heart sounds S1 and S2 are equal. No murmurs. LUNGS: Clear. ABDOMEN: Protuberant. EXTREMITIES: Have trace pretibial edema. The dorsum of the right foot is well healed. PERTINENT LABORATORY STUDIES: The chest x-ray suggests congestive heart failure. BNP is 913. Troponins are normal x3. INR 0.9. EKG shows sinus rhythm. Glucose 160, BUN 12, creatinine 0.95. ASSESSMENT: 1. New congestive heart failure without previous cardiac history. 2. Diabetes. 3. Hypertension. 4. Hyperlipidemia. PLAN: The patient is receiving IV furosemide. We will check echo and Cardiolite and further management based on clinical course. MD RICK Morse/MOE /[id number] cc: Leroy Schmitz MD
[2019-02-12 18:26] VITALS: BP 147/92
--- NOTE | 2019-02-12 19:00 | NUR ---
BEDSIDE SHIFT GIVEN TO THE RESOURCE MANAGER FORESTER RN. PT DENIED FURTHER NEEDS. FAMILY AT BEDSIDE.
--- NOTE | 2019-02-12 19:25 | NUR ---
Patient received lying in bed. AAO x 3. Family at bedside. Patient had no complaints of pain. Respirations even and non-labored. Patient instructed to call for assistance when needed. Call light within reach
[2019-02-12 20:00] VITALS: BP 135/70
[2019-02-12] MEDS: MONTELUKAST SODIUM 10 MG TAB PO SCH (21:42)
[2019-02-12] MEDS: SIMVASTATIN 40 MG TAB PO SCH (21:42)
[2019-02-13] VITALS (8 sets, daily range): BP systolic 129–147; BP diastolic 64–83
[2019-02-13 06:00] LABS: BASOPHILS % 0.6 % (0.0-1.0); EOSINOPHILS # (AUTO) 0.1 (0.0-0.4); EOSINOPHILS % 2.6 % (0.0-6.0); HEMATOCRIT 37.5 % (38.2-49.6); HEMOGLOBIN 12.5 g/dL (14.0-18.0); LYMPHOCYTES # (AUTO) 1.2 (1.0-3.2); LYMPHOCYTES % 22.6 % (18.0-39.1); MEAN CORPUSCULAR HEMOGLOBIN 29.6 pg (28-32); MEAN CORPUSCULAR HGB CONC 33.3 g/dL (31-35); MEAN CORPUSCULAR VOLUME 88.9 fL (81-99); MONOCYTES # (AUTO) 0.5 (0.2-0.8); MONOCYTES % 10.1 % (4.4-11.3); NEUTROPHILS # (AUTO) 3.4 (2.1-6.9); NEUTROPHILS % 63.7 % (38.7-80.0); PLATELET COUNT 214 x10e3/uL (140-360); RED BLOOD COUNT 4.22 x10e6/uL (4.3-5.7); RED CELL DISTRIBUTION WIDTH 14.3 % (11.7-14.4)
[2019-02-13 06:11] LABS: ANION GAP 11.6 mmol/L (8-16); BLOOD UREA NITROGEN 14 mg/dL (7-26); BUN/CREATININE RATIO 16 (6-25); CARBON DIOXIDE 28 mmol/L (22-29); CHLORIDE 107 mmol/L (98-107); CREATININE, SERUM 0.87 mg/dL (0.72-1.25); EST GLOMERULAR FILTRATION RATE > 60 ML/MIN (60-); GLUCOSE 91 mg/dL (74-118); POTASSIUM 3.6 mmol/L (3.5-5.1); SODIUM 143 mmol/L (136-145)
[2019-02-13] MEDS: INSULIN REGULAR, HUMAN 100 UNIT/1 ML 3ML VIAL SQ SCH ×4 (07:30→21:00)
[2019-02-13] MEDS: GABAPENTIN 400 MG CAP PO SCH ×2 (08:42→21:33)
[2019-02-13] MEDS: PIOGLITAZONE HCL 45 MG TAB PO SCH (08:42)
[2019-02-13] MEDS: DOCUSATE SODIUM 100 MG CAP PO SCH ×2 (08:42→17:29)
[2019-02-13] MEDS: GLIMEPIRIDE 2 MG TAB PO SCH ×2 (08:42→17:29)
[2019-02-13] MEDS: LOSARTAN POTASSIUM 25 MG TAB PO SCH (08:43)
[2019-02-13] MEDS: PANTOPRAZOLE SOD 40 MG TABEC PO SCH (08:43)
[2019-02-13] MEDS: FUROSEMIDE 20 MG TAB PO SCH (08:43)
[2019-02-13] MEDS: CLOPIDOGREL BISULFATE 75 MG TAB PO SCH (08:43)
[2019-02-13] MEDS ORDERED: SIMVASTATIN 20 MG TAB PO SCH (09:00)
--- NOTE | 2019-02-13 11:07 | NUR ---
CM left message for Dr. Felipe regarding admission status and plan. Stress test done yesterday and still needs to be read. Awaiting response.
[2019-02-13] MEDS ORDERED: SODIUM CHLORIDE FLUSH 10 ML SYR INJ PRN (13:30)
--- NOTE | 2019-02-13 14:56 | NUR ---
Nutrition Screen Note RD Recommendation for Physician: Continue diet as ordered Plan of Care: RD following, monitoring for tolerance and adequacy Nutrition reason for involvement: Nutrition Risk Trigger - New onset heart failure Primary Diagnose(s): Heart failure PMH: T2DM, hyperlipidemia, HTN Ht:65 in Wt:180lb BMI:30 kg/m2 IBW:136lb +/-10% RD Assessment: (02/13/2019) Chart reviewed. Labs and meds reviewed. Initial encounter with patient. Pt denies any difficulty chewing or swallowing, nor any nausea, vomiting or diarrhea. Pt states that he weighs more due to fluid overload at this time. Good appetite/PO intake. Diabetes is well controlled Current Diet: Cardiac Malnutrition Evaluation (02/13/2019) The patient does not meet criteria for a specified degree of malnutrition at this time. Will re-evaluate at follow-up as appropriate. Diet Education Needs Assessment: Diet education indicated, Learner(s): Patient Barriers: Pt communicated better in Swiss. Pt does not read in Omani Cultural/Language Modifications: Swiss Handouts Readiness: Willing Method: Handouts Topics: Heart failure/fluid restriction Understanding/Compliance: Expect compliance Nutrition Care Level: Low Signed: Kavon Stone RD, LD, CNSC
--- NOTE | 2019-02-13 15:03 | Myoview Stress Test ---
DATE OF STUDY: 02/12/2019 11:00:00 Stress Test - Treadmill ONLY STUDY: Lexiscan Myoview. FINDINGS: The patient had resting perfusion images taken after injection of 10.0 mCi of technetium-99m Myoview. Later due to inability to exercise, he is given Lexiscan 0.4 mg intravenously and shortly afterwards 33 mCi of technetium-99m Myoview. Perfusion images were taken by rotational tomography. Comparison of resting and Lexiscan stress images show a small anteroapical defect during stress, it is not seen at rest suggesting ischemia. There is no fixed defect to suggest any scar. Additionally, gated wall motion images were obtained and there is global hypokinesis and calculated ejection fraction 45%. FINAL IMPRESSION: 1. Abnormal Lexiscan Myoview for perfusion. 2. Small area of anteroapical ischemia. 3. No scar. 4. Mild global hypokinesis and calculated ejection fraction 45%. MD RICK Morse/MOE /[id number] cc: Leroy Schmitz MD
--- NOTE | 2019-02-13 15:29 | Diagnostic Imaging Report ---
EXAMINATION: CHEST SINGLE (PORTABLE) INDICATION: ^Cardiac Catheterization ^[id number] ^1426 ^Y COMPARISON: 02/11/2019 FINDINGS: AP view TUBES and LINES: None. LUNGS: Limited by body habitus and low lung volumes. Pulmonary vascular congestion. PLEURA: No pneumothorax. Small left pleural effusion. HEART AND MEDIASTINUM: The cardiomediastinal silhouette is enlarged. BONES AND SOFT TISSUES: No acute osseous lesion. Soft tissues are unremarkable. UPPER ABDOMEN: No free air under the diaphragm. IMPRESSION: Enlarged cardiomediastinal silhouette and mild vascular congestion. Small left pleural effusion. Underlying atelectasis/pneumonia cannot be excluded. Signed by: Dr. Roderick Hatfield MD on 02/13/2019 3:25 PM
[2019-02-13] MEDS: CARVEDILOL 3.125 MG TAB PO SCH (17:29)
--- NOTE | 2019-02-13 18:03 | NUR ---
patient resting in bed, alert with no distress, Dr Felipe had rounds this afternoon , stated patient going to have Cardiac Cath on Friday, Handout regarding Cardiac cath procedure (cameroonian) given to patient.
--- NOTE | 2019-02-13 19:26 | NUR ---
Patient received lying in bed. AAO x 3. Family at bedside. No acute distress noted. Patient instructed to call for assistance when needed. Call light within reach.
[2019-02-13] MEDS: SIMVASTATIN 40 MG TAB PO SCH (21:33)
[2019-02-13] MEDS: MONTELUKAST SODIUM 10 MG TAB PO SCH (21:33)
[2019-02-14] VITALS (8 sets, daily range): BP systolic 106–142; BP diastolic 59–80
[2019-02-14 05:23] LABS: BASOPHILS % 0.4 % (0.0-1.0); EOSINOPHILS # (AUTO) 0.1 (0.0-0.4); EOSINOPHILS % 2.2 % (0.0-6.0); HEMATOCRIT 38.8 % (38.2-49.6); HEMOGLOBIN 12.7 g/dL (14.0-18.0); LYMPHOCYTES % 20.8 % (18.0-39.1); MEAN CORPUSCULAR HEMOGLOBIN 29.3 pg (28-32); MEAN CORPUSCULAR HGB CONC 32.7 g/dL (31-35); MEAN CORPUSCULAR VOLUME 89.4 fL (81-99); MONOCYTES # (AUTO) 0.5 (0.2-0.8); MONOCYTES % 10.8 % (4.4-11.3); NEUTROPHILS # (AUTO) 3.3 (2.1-6.9); NEUTROPHILS % 65.6 % (38.7-80.0); PLATELET COUNT 199 x10e3/uL (140-360); RED BLOOD COUNT 4.34 x10e6/uL (4.3-5.7)
[2019-02-14 05:37] LABS: INR 0.94; PROTHROMBIN TIME 13.1 seconds (11.9-14.5)
[2019-02-14 05:38] LABS: PARTIAL THROMBOPLASTIN TIME 31.5 seconds (23.8-35.5)
[2019-02-14 05:49] LABS: ANION GAP 11.5 mmol/L (8-16); BLOOD UREA NITROGEN 14 mg/dL (7-26); BUN/CREATININE RATIO 16 (6-25); CALCIUM 8.8 mg/dL (8.4-10.2); CARBON DIOXIDE 26 mmol/L (22-29); CHLORIDE 105 mmol/L (98-107); CREATININE, SERUM 0.87 mg/dL (0.72-1.25); EST GLOMERULAR FILTRATION RATE > 60 ML/MIN (60-); GLUCOSE 112 mg/dL (74-118); POTASSIUM 3.5 mmol/L (3.5-5.1); SODIUM 139 mmol/L (136-145)
[2019-02-14 06:14] LABS: CHOL/HDL RATIO 5.3 (3.9-4.7); CHOLESTEROL 139 MD/DL (0-199); HDL CHOLESTEROL 26 MG/DL (40-60); LDL CHOLESTEROL 83 MG/DL (60-130); TRIGLYCERIDES 151 MG/DL (0-149)
--- NOTE | 2019-02-14 07:00 | NUR ---
Shift report given to oncoming nurse.
[2019-02-14] MEDS: INSULIN REGULAR, HUMAN 100 UNIT/1 ML 3ML VIAL SQ SCH ×4 (07:30→21:00)
[2019-02-14] MEDS: GLIMEPIRIDE 2 MG TAB PO SCH ×2 (08:23→15:51)
[2019-02-14] MEDS: CARVEDILOL 3.125 MG TAB PO SCH ×2 (08:24→15:52)
[2019-02-14] MEDS: FUROSEMIDE 20 MG TAB PO SCH (08:24)
[2019-02-14] MEDS: LOSARTAN POTASSIUM 25 MG TAB PO SCH (08:24)
[2019-02-14] MEDS: PANTOPRAZOLE SOD 40 MG TABEC PO SCH (08:24)
[2019-02-14] MEDS: PIOGLITAZONE HCL 45 MG TAB PO SCH (08:24)
[2019-02-14] MEDS: CLOPIDOGREL BISULFATE 75 MG TAB PO SCH (08:24)
[2019-02-14] MEDS: GABAPENTIN 400 MG CAP PO SCH ×2 (08:24→21:30)
[2019-02-14] MEDS: DOCUSATE SODIUM 100 MG CAP PO SCH ×2 (08:24→15:51)
[2019-02-14] MEDS: POTASSIUM CHLORIDE 10MEQ EA PO SCH (12:59)
--- NOTE | 2019-02-14 19:00 | NUR ---
WALKING ROUNDS PERFORMED, RECEIVED PT LAYING SEMI FOWLERS IN BED, AAOX3, RR EVEN AND NON-LABORED, O2 BY NC AT 2L. NO S/SX OF DISTRESS NOTED. LEFT PT LAYING SEMI FOWLERS IN BED, BED IN LOW LOCKED POSITION, SIDE RAILS UPX2, CALL LIGHT AND PHONE WITHIN REACH.
--- NOTE | 2019-02-14 19:03 | NUR ---
Report given to oncoming nurse of patient's status. Resting in bed. No s/s of acute distress noted. Family at bedside. Side rails upx2, call light within reach.
[2019-02-14] MEDS: MONTELUKAST SODIUM 10 MG TAB PO SCH (21:30)
[2019-02-14] MEDS: SIMVASTATIN 40 MG TAB PO SCH (21:30)
[2019-02-15] VITALS (8 sets, daily range): BP systolic 115–150; BP diastolic 64–86
--- NOTE | 2019-02-15 07:00 | NUR ---
The pt. is maintained on N p o status for a heart cath today. Current blood glucose is 69 and will monitor closely.
[2019-02-15] MEDS: INSULIN REGULAR, HUMAN 100 UNIT/1 ML 3ML VIAL SQ SCH ×4 (07:30→21:00)
[2019-02-15] MEDS: CARVEDILOL 3.125 MG TAB PO SCH ×2 (08:44→19:24)
[2019-02-15] MEDS: LOSARTAN POTASSIUM 25 MG TAB PO SCH (08:49)
[2019-02-15] MEDS: FUROSEMIDE 20 MG TAB PO SCH (08:50)
[2019-02-15] MEDS: POTASSIUM CHLORIDE 10MEQ EA PO SCH (08:50)
[2019-02-15] MEDS: GABAPENTIN 400 MG CAP PO SCH ×2 (10:10→21:28)
[2019-02-15] MEDS: PIOGLITAZONE HCL 45 MG TAB PO SCH (10:10)
[2019-02-15] MEDS: GLIMEPIRIDE 2 MG TAB PO SCH ×2 (10:10→19:24)
[2019-02-15] MEDS: DOCUSATE SODIUM 100 MG CAP PO SCH ×2 (10:10→19:24)
[2019-02-15] MEDS: CLOPIDOGREL BISULFATE 75 MG TAB PO SCH (10:10)
[2019-02-15 11:01] LABS: ANION GAP 10.2 mmol/L (8-16); BLOOD UREA NITROGEN 16 mg/dL (7-26); BUN/CREATININE RATIO 19 (6-25); CALCIUM 8.9 mg/dL (8.4-10.2); CARBON DIOXIDE 29 mmol/L (22-29); CHLORIDE 104 mmol/L (98-107); CREATININE, SERUM 0.85 mg/dL (0.72-1.25); EST GLOMERULAR FILTRATION RATE > 60 ML/MIN (60-); GLUCOSE 73 mg/dL (74-118); POTASSIUM 4.2 mmol/L (3.5-5.1); SODIUM 139 mmol/L (136-145)
[2019-02-15] MEDS ORDERED: IOPAMIDOL 370 MG/ML 200 ML INFUS..BTL INJ ONE (17:25)
[2019-02-15] MEDS ORDERED: FENTANYL CITRATE/PF 100MCG/2 ML INJ ONE (17:25)
[2019-02-15] MEDS ORDERED: MIDAZOLAM HCL 2 MG/2 ML VIAL ONE (17:25)
[2019-02-15] MEDS ORDERED: LIDOCAINE HCL 2% LOCAL 20 ML VIAL ONE (17:25)
--- NOTE | 2019-02-15 17:59 | NUR ---
To blood bank laboratory technician via bed for Heart cath.
[2019-02-15] MEDS ORDERED: ACETAMINOPHEN 325 MG TAB PO PRN (19:00)
--- NOTE | 2019-02-15 19:00 | NUR ---
The pt. returned from clinical lab clerk via bed post diagnostic heart cath via the right groin. His groin is soft and no bleeding noted. The family is here and insisting the pt. be fed and were advised that we need to wait until the returns call to allow the pt. to eat. Dr. Felipe retuerned the call and the pt. was advised to feed the pt. and to maintain flat with leg straight until 2200.
--- NOTE | 2019-02-15 19:20 | NUR ---
RECEIVED PT RESTING IN BED WITH NO S/S OF DISTRESS.RESPIRATIONS EVEN/NON LABORED.PT DENIES ANY PAIN.PT S/P HEART CATH.RIGHT GROIN SITE WITH DRESSING C/D/I.NO S/S OF BLEEDING NOTED.NO SWELLING NOTED.PEDAL PULSES PALPABLE.REMINDED PT ABOUT LAYING FLAT WITH LEG STRAIGHT.PT VERBALIZED UNDERSTANDING.FAMILY MEMBERS AT BEDSIDE.CALL LIGHT WITHIN EASY REACH.
[2019-02-15] MEDS: MONTELUKAST SODIUM 10 MG TAB PO SCH (21:28)
[2019-02-15] MEDS: SIMVASTATIN 40 MG TAB PO SCH (21:28)
[2019-02-16] VITALS (7 sets, daily range): BP systolic 96–128; BP diastolic 56–82
--- NOTE | 2019-02-16 00:47 | NUR ---
EQUIPMENT DETAILER CALLED AND STATED PT GOT DENIED BY [facility]) DUE TO PT'S INSURANCE.PAGED DR JONES TO NOTIFY.
--- NOTE | 2019-02-16 01:08 | NUR ---
CALLED AND SPOKE WITH DR JONES NOTIFIED THAT PT GOT DENIED BY [facility] DUE TO PT'S INSURANCE.N/O RECEIVED AND ENTERED.ASSOCIATE SCIENTIST NOTIFIED.
--- NOTE | 2019-02-16 07:00 | NUR ---
RCD PT AT BED PT IS ALERT AND ORIENTED PT RESTING ON BED NO SIGNS OF ANY DISTRESS NOTED IV PATENT BY SALINE FLUSH FAMILY AT BED SIDE BED LOW AND LOCKED CALL LIGHT IN REACH
--- NOTE | 2019-02-16 07:19 | NUR ---
BEDSIDE SHIFT REPORT GIVEN TO ONCOMING NURSE.PT RESTING IN BED WITH NO S/S OF DISTRESS.CALL LIGHT WITHIN EASY REACH.
[2019-02-16] MEDS: INSULIN REGULAR, HUMAN 100 UNIT/1 ML 3ML VIAL SQ SCH ×3 (07:30→16:30)
[2019-02-16] MEDS: PANTOPRAZOLE SOD 40 MG TABEC PO SCH (07:30)
[2019-02-16] MEDS: GLIMEPIRIDE 2 MG TAB PO SCH ×2 (08:00→17:00)
[2019-02-16] MEDS: CARVEDILOL 3.125 MG TAB PO SCH ×2 (08:00→17:00)
[2019-02-16] MEDS: GABAPENTIN 400 MG CAP PO SCH (09:00)
[2019-02-16] MEDS: LOSARTAN POTASSIUM 25 MG TAB PO SCH (09:00)
[2019-02-16] MEDS: POTASSIUM CHLORIDE 10MEQ EA PO SCH (09:00)
[2019-02-16] MEDS: DOCUSATE SODIUM 100 MG CAP PO SCH ×2 (09:00→17:00)
[2019-02-16] MEDS: PIOGLITAZONE HCL 45 MG TAB PO SCH (09:00)
[2019-02-16] MEDS: FUROSEMIDE 20 MG TAB PO SCH (09:00)
[2019-02-16] MEDS: CLOPIDOGREL BISULFATE 75 MG TAB PO SCH (09:00)
--- NOTE | 2019-02-16 10:17 | NUR ---
Spoke with Paulette at Dr. Willingham's office to see which hospitals Dr. Willingham goes to. She stated that Dr. Willingham goes to [facility] and has privileges at [facility], but doesn't really accept pts there. WESLEY informed her that we initiated a transfer yesterday to [facility], but was denied. Dr. Felipe has already spoken with Dr. Willingham and he was told he would accept the pt. Pt needing bypass graft surgery. Paulette states that Dr. Willingham is currently in a procedure and she will talk to him to see if he would accept pt at [facility] once he is done with surgery. She will call CM back once she has an answer. WESLEY left callback number.
--- NOTE | 2019-02-16 11:58 | NUR ---
Received callback from Paulette with Dr. Willingham's office. She states that Dr. Willingham will only take pt if he can be transferred to [facility]. WESLEY called Dr. Cuevas's office to page him to update him on transfer status.
--- NOTE | 2019-02-16 14:28 | NUR ---
Received callback from Dr. Felipe and informed him that Dr. Willingham unable to accept pt, due to him not being able to go to [facility]. He asked to find out where pt's insurance would allow him to transfer. CM called and spoke with Dimple Godinez (Ref #[id number]) who informed CM that Dr. Reza and [facility] are both in network with insurance. Called and spoke with Dr. Reza who stated that he will accept pt if pt is able to be transferred to [facility]. CM spoke to pt and family at bedside. They are agreeable to transfer downtown to [facility]. Choice letter signed and placed in chart. Copy to pt. WESLEY called transfer center at [phone] and spoke with Cathie and initiated transfer. Gave Cathie OLSON's callback number and also callback number for nurses station. H&P and facesheet faxed to [phone] Felipe was updated on transfer. Addendum: 02/16/19 at 1440 by [employer] [employer] H&P and facesheet faxed to [phone]
--- NOTE | 2019-02-16 15:05 | Operative Report ---
DATE OF PROCEDURE: 02/15/2019 SURGEON: Edward Felipe MD PROCEDURE: Cardiac cath. INDICATION: New congestive heart failure and abnormal Cardiolite. PROCEDURE IN DETAIL: The patient was brought to the slab lifting engineer in a fasting and partially sedated state. The right groin prepped with scrub and 2% xylocaine. He was given 0.5 mg Versed and 4-Polish sheath placed in the right common femoral artery. Cardiac cath performed with a 4-Polish pigtail and 4-Polish right and left Roly catheters. The left ventricular end-diastolic pressure was measured about 20 mmHg. The left ventriculogram was abnormal with mild apical hypokinesis and EF about 45%. The right coronary is a dominant vessel, providing relatively large posterior descending and 2 posterolaterals. The main body of the right coronary artery has no significant stenosis, but the proximal posterior descending has 60% narrowing and the mid 1st posterolateral has about 90% narrowing. There are collaterals that go from the posterior descending to the LAD and there was some faint collateralization to an obtuse marginal. The left main, proximal LAD, and circumflex were all diffusely calcified. The left main has a tubular 70% stenosis in its midportion. The circumflex has 99% stenosis at its origin and is poorly visualized more distally with again a faint obtuse marginal faintly visualized. The proximal LAD has about 95% stenosis followed by tubular 90% stenoses and 90% stenosis in the 1st diagonal and mid LAD. The LAD is totally occluded in its 3rd portion. The left internal mammary is injected and found to be a good vessel. Then, the catheter was removed and pressure held, and he was returned to his room in stable condition. FINAL IMPRESSION: 1. Abnormal left ventricular function with mild apical hypokinesis. EF about 45%. 2. A 70% left main stenosis plus three-vessel coronary artery disease as described above with calcifications of the left main, LAD, and circumflex. 3. Collateral filling of the obtuse marginal and distal LAD. 4. Recommendations for coronary artery bypass graft surgery. MD RICK Morse/MOE /[id number] cc: Leroy Schmitz MD
--- NOTE | 2019-02-16 16:44 | NUR ---
Spoke with Cathie at transfer center. States still working on getting a bed. They are pending a few discharges, but will call the unit with bed assignment once available. MOT initiated and placed with pt's packet at nurses station.
--- NOTE | 2019-02-16 17:48 | NUR ---
PAGED AND NOTIFIED DR JONES PT APPROVED BY [facility] GOT THE DISCHARGE ORDER
--- NOTE | 2019-02-16 18:20 | NUR ---
REPORT GIVEN TO VLAD CHAVEZ AND NOTIFIED THE [facility] BRAN[employer] MANAGER
--- NOTE | 2019-02-16 19:33 | NUR ---
patient is discharged and pending parts picker to [facility] for cardiac related surgery.
--- NOTE | 2019-02-16 20:44 | NUR ---
PATIENT DISCHARGED AND LEFT UNIT VIA AMBULANCE
--- NOTE | 2019-02-17 11:30 | Discharge Summary ---
Mr. Olivera is a pleasant 63-year-old man, who presented on the with a complaint of shortness of breath. HISTORY OF PRESENT ILLNESS: The patient and his family reported that he had become progressively short of breath over the last several days. He denied any chest pain or palpitations. He did notice some ankle edema. Admitting laboratory studies showed elevated BNP and he was given diuretics with weight loss reduced. Echocardiogram showed slightly reduced left ventricular function with EF 45% and on the , the patient had Lexiscan Myoview performed that was abnormal, suggesting apical ischemia. He had Coreg added to his medical regimen. He was monitored over the weekend and on Friday, was scheduled for cardiac cath on Friday. However, Friday came and it was found he was not on the schedule and had to be added for a late case after 6 other cases. Cardiac catheterization showed severe left main and critical three-vessel coronary artery disease. Please see the diagram. Left main about 70% stenosis and calcified. Proximal LAD 95% stenosis with serial 90% stenoses in mid LAD and 1st diagonal. The LAD is totally occluded in its midportion. The circumflex had 99% stenosis with faint collateral filling of an obtuse marginal vessel. The right coronary artery is dominant without significant stenosis through its major portion, but the posterior descending has about 60% ostial stenosis and the 1st posterolateral about 90% stenosis. There are collaterals going from the PDA to the distal LAD and there was some collateralization to the obtuse marginal. Again, the ejection fraction showed apical hypokinesis, EF about 45%. Arrangements were made for transfer to another hospital for consideration of bypass graft surgery. However, his insurance company would not approve the initial selection. Finally, on Friday, the , he was discharged to [facility] to Dr. Vince Reza to consider coronary artery bypass graft surgery. DISCHARGE DIAGNOSES: 1. New onset congestive heart failure. 2. Critical three-vessel coronary artery disease. 3. Abnormal left ventricular function. 4. Type 2 adult onset diabetes. 5. History of hypertension. 6. Hyperlipidemia. Note, the patient did not have myocardial infarction. His cardiac enzymes were normal. MD RICK Morse/MOE /[id number] cc: Leroy Schmitz MD
== END 2019-02-16 20:41 | disposition short-term general hospital (02) | DRG 287 ==
LOC: ER 15:44 → ERHOLD 18:34 → MED/SURG2 02-12 15:19
PROVIDERS: ADMIT Internal Medicine Cardiovascular Disease; ATTEND Internal Medicine Cardiovascular Disease
PROC: 4A023N7 Measurement of Cardiac Sampling and Pressure, Left Heart, Percutaneous Approach (ICD-10-PCS; principal; 2019-02-15)
PROC: B2111ZZ Fluoroscopy of Multiple Coronary Arteries using Low Osmolar Contrast (ICD-10-PCS; 2019-02-15)
PROC: B2151ZZ Fluoroscopy of Left Heart using Low Osmolar Contrast (ICD-10-PCS; 2019-02-15)
DX: I11.0 Hypertensive heart disease with heart failure (principal); I50.41 Acute combined systolic (congestive) and diastolic (congestive) heart failure; E11.9 Type 2 diabetes mellitus without complications; E86.0 Dehydration; E78.5 Hyperlipidemia, unspecified; R09.02 Hypoxemia; I25.10 Atherosclerotic heart disease of native coronary artery without angina pectoris; Z79.84 Long term (current) use of oral hypoglycemic drugs
CPT/HCPCS: 36415; 71045; 78452; 80048; 80053; 80061; 81001; 82550; 82553; 82948; 83880; 84443; 84484; 85025; 85610; 85730; 93005; 93017; 93306; 93458; 99152; 99285; A9502; C1766; J1817; J1940; J2001; J2250; J3010; J7799; Q9967

== ENCOUNTER → 2022-07-24 | Day surgery (SDC) | payer OTHER ==
[2022-07-22 13:26] LABS: BASOPHILS % 0.6 % (0.0-1.0); EOSINOPHILS # (AUTO) 0.1 (0.0-0.4); EOSINOPHILS % 1.4 % (0.0-6.0); HEMATOCRIT 27.1 % (38.2-49.6); HEMOGLOBIN 7.5 g/dL (14.0-18.0); LYMPHOCYTES # (AUTO) 0.7 (1.0-3.2); LYMPHOCYTES % 11.7 % (18.0-39.1); MEAN CORPUSCULAR HEMOGLOBIN 19.7 pg (28-32); MEAN CORPUSCULAR HGB CONC 27.7 g/dL (31-35); MEAN CORPUSCULAR VOLUME 71.1 fL (81-99); MONOCYTES # (AUTO) 0.6 (0.2-0.8); MONOCYTES % 10.1 % (4.4-11.3); NEUTROPHILS # (AUTO) 4.7 (2.1-6.9); NEUTROPHILS % 75.9 % (38.7-80.0); PLATELET COUNT 207 x10e3/uL (140-360); RED BLOOD COUNT 3.81 x10e6/uL (4.3-5.7)
[~2022-07-24] MED LIST changes: +AMIODARONE HCL200 MG PO; +ASPIRIN81 MG PO; +FARXIGA10 MG PO; +FENTANYL CITRATE/PF 100MCG/2 ML INJ ONE; +FUROSEMIDE40 MG PO; +GLUCAGON FOR INJ 1 MG VIAL ONE; +LACTATED RINGER'S 1,000 ML ONE; +LIDOCAINE HCL 2% LOCAL INJ 5 ML SDV VIAL INJ ONE; +LIPITOR10 MG PO; +METFORMIN HCL500 M2 PO; +METOCLOPRAMIDE HCL 10 MG/2ML VIAL ONE; +METOPROLOL SUCC25 MG PO; +NATEGLINIDE120 MG PO; -OMEPRAZOLE40 MG PEG; +OMEPRAZOLE40 MG PO; +ONDANSETRON HCL INJ 2MG/ML 2ML 2 MG/ML VIAL ONE; +PROPOFOL IV EMULSION 10 MG/ML 20 ML VIAL ONE; +PROPOFOL IV EMULSION 50 ML IV ONE
[2022-07-24 16:10] VITALS: BP 132/70
[2022-07-24 16:26] LABS: % IRON SATURATION 5 % (15-50); IRON 16 ug/dL (65-175); TOTAL IRON BINDING CAPACITY 335 ug/dL (261-478); TRANSFERRIN 239 mg/dL (174-364)
== END | disposition home or self-care (01) ==
LOC: OR 11:26
PROVIDERS: ATTEND Internal Medicine Gastroenterology
DX: K59.00 Constipation, unspecified (principal); K29.70 Gastritis, unspecified, without bleeding; K20.90 Esophagitis, unspecified without bleeding; K58.9 Irritable bowel syndrome, unspecified; K64.8 Other hemorrhoids; D64.89 Other specified anemias; D72.820 Lymphocytosis (symptomatic); Z71.3 Dietary counseling and surveillance; E11.9 Type 2 diabetes mellitus without complications; I10 Essential (primary) hypertension; I25.810 Atherosclerosis of coronary artery bypass graft(s) without angina pectoris; Z01.810 Encounter for preprocedural cardiovascular examination; Z01.812 Encounter for preprocedural laboratory examination; Z79.82 Long term (current) use of aspirin; Z79.84 Long term (current) use of oral hypoglycemic drugs; Z79.899 Other long term (current) drug therapy; Z68.26 Body mass index [BMI] 26.0-26.9, adult; Z95.1 Presence of aortocoronary bypass graft; Z95.0 Presence of cardiac pacemaker
CPT/HCPCS: 36415 ×2; 43239; 45378; 82948; 83540; 84466; 85025; 85045; 93005; C9113; J1610; J2001; J2405; J2704 ×2; J2765; J3010; J7121

== ENCOUNTER → 2022-08-21 | Outpatient (CLI) | payer OTHER ==
[~2022-08-21] MED LIST changes: -FENTANYL CITRATE/PF 100MCG/2 ML INJ ONE; -GLUCAGON FOR INJ 1 MG VIAL ONE; -LACTATED RINGER'S 1,000 ML ONE; -LIDOCAINE HCL 2% LOCAL INJ 5 ML SDV VIAL INJ ONE; -METOCLOPRAMIDE HCL 10 MG/2ML VIAL ONE; -ONDANSETRON HCL INJ 2MG/ML 2ML 2 MG/ML VIAL ONE; -PROPOFOL IV EMULSION 10 MG/ML 20 ML VIAL ONE; -PROPOFOL IV EMULSION 50 ML IV ONE
== END ==
LOC: DX 09:45
PROVIDERS: ATTEND Nurse Practitioner
DX: D64.89 Other specified anemias (principal); K29.60 Other gastritis without bleeding; Q43.8 Other specified congenital malformations of intestine
CPT/HCPCS: 74250